=== PATIENT | male | born 1960 | race Caucasian/White ===

== ENCOUNTER 2019-10-11 14:52 | Emergency (ER) | payer BC, OTHER ==
[~2019-10-11] VITALS: Ht 172.7 cm; Wt 100.0 kg
--- NOTE | 2019-10-11 15:15 | ED General ---
General Chief Complaint: General Problems/Pain Stated Complaint: LT ARM PAIN Source of Information: Patient Exam Limitations: No Limitations History of Present Illness Date Seen by Provider: Oct 11, 2019 Time Seen by Provider: 15:00 Initial Comments Patient with onset of chest pain 2 days ago at rest while eating. Described as chest pressure radiating to his left arm that resolved after a few hours. Patient states he took 3 baby aspirin and the next day felt completely normal and had a great day. Today's been a little concerned as he had some achiness in his left forearm, although he has muscle spasms in this area, he says since his teenage years. He was concerned that it might be related to the chest pain he had 2 days ago. Currently denies chest pain, shortness of air, fever or recent illness. Denies history of heart or lung disease, he is a nonsmoker. Past medical history significant for hypertension, controlled with medication. Allergies and Home Medications Home Medications Nitroglycerin 0.4 Mg Tab.subl, 0.4 MG SL UD PRN for CHEST PAIN Prescribed by: DEL GAFFNEY on 10/11/19 [id number] Patient Home Medication List Home Medication List Reviewed: Yes Review of Systems Review of Systems Constitutional: see HPI; No dizziness, No fever, No malaise, No weakness Respiratory: No cough, No short of breath Cardiovascular: chest pain (resolved); No edema, No palpitations, No syncope, No vascular heart diseas Gastrointestinal: No abdominal pain, No constipation, No diarrhea, No loss of appetite, No nausea, No vomiting Musculoskeletal: No back pain, No joint pain Skin: No change in color, No rash Psychiatric/Neurological: Denies Numbness, Denies Paresthesia Past Fgdnbcg-Vjxfrm-Wiotkf Hx Past Med/Social Hx: Reviewed Nursing Past Med/Soc Hx Patient Social History Alcohol Use: Occasionally Uses Recreational Drug Use: No Smoking Status: Never a Smoker 2nd Hand Smoke Exposure: No Recent Foreign Travel: No Contact w/Someone Who Travel: No Recent Hopitalizations: No Physical Abuse: No Sexual Abuse: No Mistreated: No Fear: No Seasonal Allergies Seasonal Allergies: Yes Past Medical History Surgeries: No Respiratory: No Cardiac: Yes Hypertension Neurological: No Genitourinary: No Gastrointestinal: No Musculoskeletal: No Endocrine: No HEENT: No Cancer: No Psychosocial: No Integumentary: No Blood Disorders: No Physical Exam Vital Signs Vital Signs - First Documented 10/11/19 14:58 Temp 37.0 Pulse 97 Resp 20 B/P (MAP) 177/99 (125) Pulse Ox 96 O2 Delivery Room Air Capillary Refill : Height, Weight, BMI Height: '" Weight: lbs. oz. kg; BMI Method: General Appearance: No Apparent Distress, WD/WN HEENT: Normal ENT Inspection Neck: Normal Inspection, Non Tender, Supple Respiratory: Chest Non Tender, Lungs Clear, Normal Breath Sounds Cardiovascular: Regular Rate, Rhythm, No Edema, No Gallop, No JVD, No Murmur, Normal Peripheral Pulses Gastrointestinal: Non Tender, Soft Back: Normal Inspection, No CVA Tenderness Extremity: Normal Capillary Refill, Normal Inspection, Non Tender, No Calf Tenderness Neurologic/Psychiatric: Alert, Oriented x3, No Motor/Sensory Deficits, Normal Mood/Affect Skin: Normal Color, Warm/Dry Progress/Results/Core Measures Suspected Sepsis SIRS Temperature: Pulse: Respiratory Rate: Laboratory Tests 10/11/19 15:20: White Blood Count 8.1 Blood Pressure / Mean: Laboratory Tests 10/11/19 15:20: Creatinine 0.88, Platelet Count 317, Total Bilirubin 0.5 Results/Orders Lab Results Laboratory Tests Test 10/11/19 15:20 Range/Units White Blood Count 8.1 4.3-11.0 10^3/uL Red Blood Count 4.92 4.35-5.85 10^6/uL Hemoglobin 16.3 13.3-17.7 G/DL Hematocrit 47 40-54 % Mean Corpuscular Volume 95 80-99 FL Mean Corpuscular Hemoglobin 33 25-34 PG Mean Corpuscular Hemoglobin Concent 35 32-36 G/DL Red Cell Distribution Width 12.6 10.0-14.5 % Platelet Count 317 130-400 10^3/uL Mean Platelet Volume 9.2 7.4-10.4 FL Neutrophils (%) (Auto) 72 42-75 % Lymphocytes (%) (Auto) 21 12-44 % Monocytes (%) (Auto) 7 0-12 % Eosinophils (%) (Auto) 0 0-10 % Basophils (%) (Auto) 0 0-10 % Neutrophils # (Auto) 5.8 1.8-7.8 X 10^3 Lymphocytes # (Auto) 1.7 1.0-4.0 X 10^3 Monocytes # (Auto) 0.6 0.0-1.0 X 10^3 Eosinophils # (Auto) 0.0 0.0-0.3 10^3/uL Basophils # (Auto) 0.0 0.0-0.1 10^3/uL Sodium Level 142 135-145 MMOL/L Potassium Level 3.9 3.6-5.0 MMOL/L Chloride Level 104 98-107 MMOL/L Carbon Dioxide Level 23 21-32 MMOL/L Anion Gap 15 H 5-14 MMOL/L Blood Urea Nitrogen 15 7-18 MG/DL Creatinine 0.88 0.60-1.30 MG/DL Estimat Glomerular Filtration Rate > 60 BUN/Creatinine Ratio 17 Glucose Level 135 H 70-105 MG/DL Calcium Level 9.2 8.5-10.1 MG/DL Corrected Calcium 9.0 8.5-10.1 MG/DL Total Bilirubin 0.5 0.1-1.0 MG/DL Aspartate Amino Transf (AST/SGOT) 23 5-34 U/L Alanine Aminotransferase (ALT/SGPT) 32 0-55 U/L Alkaline Phosphatase 69 40-136 U/L Troponin I < 0.30 <0.30 NG/ML Total Protein 7.1 6.4-8.2 GM/DL Albumin 4.2 3.2-4.5 GM/DL My Orders Orders - ROVENSTINEDEL DO Ed Iv/Invasive Line Start (10/11/19 15:10) Chest 1 View Ap/Pa Only (10/11/19 15:10) Ekg Tracing (10/11/19 15:10) Cbc With Automated Diff (10/11/19 15:10) Comprehensive Metabolic Panel (10/11/19 15:10) Troponin I Fs (10/11/19 15:10) Vital Signs/I&O 10/11/19 14:58 Temp 37.0 Pulse 97 Resp 20 B/P (MAP) 177/99 (125) Pulse Ox 96 O2 Delivery Room Air Capillary Refill : ECG Initial ECG Impression Time: 15:20 Initial ECG Rate: 95 Initial ECG Rhythm: Normal Sinus Initial ECG Intervals: Normal Initial ECG Impression: Normal Diagnostic Imaging Diagonstic Imaging: Xray Plain Films/CT/US/NM/MRI: chest Comments Date of Exam:10/11/19 CHEST 1 VIEW AP/PA ONLY INDICATION: Chest tightness. COMPARISON: None available. TECHNIQUE: Three radiographs of the chest dated 10/11/2019. FINDINGS: The cardiac silhouette is at the upper limits of normal in size. No significant pulmonary vascular congestion. The lungs are clear. No pleural effusion. No pneumothorax. No acute osseous abnormality. IMPRESSION: Borderline cardiomegaly without superimposed acute cardiopulmonary abnormality. Dictated on workstation # [id number] Dict: 10/11/19 1539 Trans: 10/11/19 1543 [id number] Interpreted by: RAMON KANG MD Electronically signed by: Departure Impression Primary Impression: Chest pain Qualified Codes: R07.9 - Chest pain, unspecified Additional Impressions: Abnormal ECG Hypertension Qualified Codes: I10 - Essential (primary) hypertension Disposition: HOME, SELF-CARE Condition: Stable Departure-Patient Inst. Decision time for Depature: 16:14 Referrals: SWAPNA SIMMONS MD (PCP) Primary Care Physician ALTAF MORE MD Patient Instructions: Chest Pain (DC), Heart Healthy Diet, Lowering Your Risk of Heart Disease Add. Discharge Instructions: Call Dr More, Air Crew Supervisor (TOMORROW) to arrange for a Stress test and follow- up appointment. Until told otherwise, take a baby aspirin (81mg) daily. Continue your blood pressure medication as instructed All discharge instructions reviewed with patient and/or family. Voiced understanding. Scripts Nitroglycerin (Nitroglycerin) 0.4 Mg Tab.subl 0.4 MG SL UD PRN for CHEST PAIN, #20 TAB Prov: DEL GAFFNEY DO 10/11/19 DEL GAFFNEY DO Oct 11, 2019 15:15
--- NOTE | 2019-10-11 15:44 | Diagnostic Imaging Report ---
INDICATION: Chest tightness. COMPARISON: None available. TECHNIQUE: Three radiographs of the chest dated 10/11/2019. FINDINGS: The cardiac silhouette is at the upper limits of normal in size. No significant pulmonary vascular congestion. The lungs are clear. No pleural effusion. No pneumothorax. No acute osseous abnormality. IMPRESSION: Borderline cardiomegaly without superimposed acute cardiopulmonary abnormality. Dictated by: Dictated on workstation # [id number]
[2019-10-11 15:45] LABS: BASOPHILS % (AUTO) 0 % (0-10); EOSINOPHILS % (AUTO) 0 % (0-10); HEMATOCRIT 47 % (40-54); HEMOGLOBIN 16.3 G/DL (13.3-17.7); MEAN CORPUSCULAR HEMOGLOBIN 33 PG (25-34); MEAN CORPUSCULAR HGB CONC 35 G/DL (32-36); MEAN CORPUSCULAR VOLUME 95 FL (80-99); MEAN PLATELET VOLUME 9.2 FL (7.4-10.4); MONOCYTES % (AUTO) 7 % (0-12); NEUTROPHILS % (AUTO) 72 % (42-75); PLATELET COUNT 317 10^3/uL (130-400); RED CELL DISTRIBUTION WIDTH 12.6 % (10.0-14.5); WHITE BLOOD COUNT 8.1 10^3/uL (4.3-11.0)
[2019-10-11 15:46] LABS: LYMPHOCYTES # (AUTO) 1.7 X 10^3 (1.0-4.0); LYMPHOCYTES % (AUTO) 21 % (12-44); MONOCYTES # (AUTO) 0.6 X 10^3 (0.0-1.0); NEUTROPHILS # (AUTO) 5.8 X 10^3 (1.8-7.8)
[2019-10-11 15:53] LABS: BUN/CREATININE RATIO 17; CARBON DIOXIDE 23 MMOL/L (21-32); CHLORIDE 104 MMOL/L (98-107); CREATININE SERUM 0.88 MG/DL (0.60-1.30); GFR ESTIMATED > 60; POTASSIUM 3.9 MMOL/L (3.6-5.0); SODIUM 142 MMOL/L (135-145)
[2019-10-11 15:54] LABS: ALANINE AMINOTRANSFERASE 32 U/L (0-55); ALBUMIN 4.2 GM/DL (3.2-4.5); ALKALINE PHOSPHATASE 69 U/L (40-136); BILIRUBIN,TOTAL 0.5 MG/DL (0.1-1.0); CALCIUM 9.2 MG/DL (8.5-10.1); GLUCOSE 135 MG/DL (70-105); TOTAL PROTEIN 7.1 GM/DL (6.4-8.2)
[2019-10-11] MEDS ORDERED: NITR0.4T39 SL (16:16)
[2019-10-11 16:31] VITALS: BP 154/68
--- OUTSIDE RECORDS SUMMARY | 2019-10-11 20:03 | XMS REPORT | Continuity of Care Document ---
Author Organization Unknown Address Unknown Phone Unavailable Allergies There is no data. Medications There is no data. Problems There is no data. Procedures There is no data. Results Test Result Range CMP - 11/10/18 11:42 GLUCOSE 136 mg/dL 65-99 UREA NITROGEN (BUN) 19 mg/dL 7-25 CREATININE 0.98 mg/dL 0.70-1.33 eGFR NON-AFR. ANGUILLAN 85 mL/min/1.73m2 > OR = 60 eGFR 99 mL/min/1.73m2 > OR = 60 BUN/CREATININE RATIO NOT APPLICABLE (calc) 6-22 SODIUM 143 mmol/L 135-146 POTASSIUM 3.8 mmol/L 3.5-5.3 CHLORIDE 107 mmol/L 98-110 CARBON DIOXIDE 26 mmol/L 20-32 CALCIUM 9.4 mg/dL 8.6-10.3 PROTEIN, TOTAL 7.2 g/dL 6.1-8.1 ALBUMIN 4.3 g/dL 3.6-5.1 GLOBULIN 2.9 g/dL (calc) 1.9-3.7 ALBUMIN/GLOBULIN RATIO 1.5 (calc) 1.0-2. 5 BILIRUBIN, TOTAL 0.7 mg/dL 0.2-1.2 ALKALINE PHOSPHATASE 66 U/L 40-115 AST 26 U/L 10-35 ALT 37 U/L 9-46 CBC w/MANUAL DIFF - 11/10/18 11:42 WHITE BLOOD CELL COUNT 7.0 Thousand/uL 3 .8-10.8 RED BLOOD CELL COUNT 5.13 Million/uL 4.2 0-5.80 HEMOGLOBIN 16.7 g/dL 13.2-17.1 HEMATOCRIT 48.5 % 38.5-50.0 MCV 94.5 fL 80.0-100.0 MCH 32.6 pg 27.0-33.0 MCHC 34.4 g/dL 32.0-36.0 RDW 12.4 % 11.0-15.0 PLATELET COUNT 231 Thousand/uL 140-400 MPV 9.7 fL 7.5-12.5 ABSOLUTE NEUTROPHILS 5250 cells/uL 1500- 7800 ABSOLUTE MONOCYTES 560 cells/uL 200-950 ABSOLUTE EOSINOPHILS 70 cells/uL 15-500 ABSOLUTE BASOPHILS 70 cells/uL 0-200 NEUTROPHILS 75.0 % NRG LYMPHOCYTES 15.0 % NRG MONOCYTES 8.0 % NRG EOSINOPHILS 1.0 % NRG BASOPHILS 1.0 % NRG ABSOLUTE LYMPHOCYTES 1050 cells/uL 850-3 900 PLATELET ESTIMATION ADEQUATE ADEQUATE CBC MORPHOLOGY NORMAL ABSOLUTE NUCLEATED RBC 70 cells/uL NUCLEATED RBC 1 /100 WBC Encounters ACCT No. Visit Date/Time Discharge Status Pt. Type Provider Facility Loc./Unit Complaint [id number] 11/10/2018 10:40:00 11/10/2018 23:59: 59 [facility] Outpatient [facility] [id number] 11/10/2018 10:40:00 Document Registration [id number] 2019 14:56:00 020 16:21:00 DIS Emergency DEL GAFFNEY DO [facility] ER FS LT ARM PAIN
== END 2019-10-11 16:21 | disposition home or self-care (01) ==
LOC: ER FS 14:56
DX: R07.89 Other chest pain (principal); R94.31 Abnormal electrocardiogram [ECG] [EKG]; I10 Essential (primary) hypertension
CPT/HCPCS: 36415; 71045; 80053; 84484; 85025; 93005